=== PATIENT | female | born 1960 | race Caucasian/White ===

== ENCOUNTER 2023-02-03 11:51 | Emergency (ER) | payer OTHER ==
[~2023-02-03] VITALS: Ht 154.9 cm; Wt 66.7 kg
[2023-02-03] VITALS (16 sets, daily range): BP systolic 143–180; BP diastolic 86–105
[2023-02-03 12:58] LABS: BASO% 0.4 % (0-3); EOS% 0.7 % (0-8); HEMATOCRIT 43.1 % (37.0-47.0); HEMOGLOBIN 14.2 g/dl (12.0-16.0); IMMATURE GRANULOCYTES 0.3 % (0.0-5.0); LYMPH% 31.7 % (15-41); MEAN CELL VOLUME 91.1 fL CALC (80.0-100.0); MEAN CORPUSCULAR HGB CONC 32.9 g/dL CAL (32.0-36.0); MONO% 6.1 % (2-13); NEUT# 4.63 thou/uL (2.00-7.15); NEUT% 60.8 % (42-76); RED BLOOD COUNT 4.73 mill/uL (4.20-5.60); RED CELL DISTRI WIDTH 13.1 % (11.5-15.5)
[2023-02-03 13:20] LABS: ALBUMIN 4.3 g/dL (3.2-5.0); ALKALINE PHOSPHATASE 80 u/l (38-126); ANION GAP 12 (6-22 (CALC)); BILIRUBIN, TOTAL 0.8 mg/dL (0.02-1.3); BUN 12 mg/dL (8-23); BUN/CREATININE RATIO 17 (12-20 (CALC)); CARBON DIOXIDE 25 mmol/l (22-30); CHLORIDE 105 mmol/l (95-108); CREATININE 0.7 mg/dL (0.5-1.0); GFR FOR AFR.AMER. > 60 ML/MIN (>=60 (CALC)); GFR OTHER RACES > 60 ML/MIN (>=60 (CALC)); POTASSIUM 4.6 mmol/l (3.5-5.1); SGOT/AST 25 u/l (9-36); SODIUM 137 mmol/l (137-146); TOTAL PROTEIN 7.3 g/dL (6.3-8.2)
[2023-02-03 13:51] LABS: TSH, 3RD GENERATION 3.16 uIU/mL (0.47 - 4.68)
== END 2023-02-03 16:31 | disposition home or self-care (01) ==
LOC: EDBD 11:51 → ED 11:51
PROVIDERS: Family Medicine
DX: Z45.02 Encounter for adjustment and management of automatic implantable cardiac defibrillator (principal); I42.9 Cardiomyopathy, unspecified; I25.10 Atherosclerotic heart disease of native coronary artery without angina pectoris; I10 Essential (primary) hypertension; E11.9 Type 2 diabetes mellitus without complications; Z95.810 Presence of automatic (implantable) cardiac defibrillator; Z95.5 Presence of coronary angioplasty implant and graft; Z91.199 Patient's noncompliance with other medical treatment and regimen due to unspecified reason

== ENCOUNTER 2023-06-08 13:52 | Emergency (ER) | payer OTHER ==
[~2023-06-08] VITALS: Ht 154.9 cm; Wt 45.0 kg
[2023-06-08 13:59] VITALS: BP 171/103
[2023-06-08 14:00] VITALS: BP 179/97
[2023-06-08 14:15] VITALS: BP 165/101
[2023-06-08] MEDS ORDERED: LOSARTAN POTASS25 MG PO (14:19)
[2023-06-08] MEDS ORDERED: CARVEDILOL6.25 MG PO (14:20)
[2023-06-08] MEDS ORDERED: FLOVENT HF110 MCG/AC (14:21)
[2023-06-08] MEDS ORDERED: SIMVASTATIN20 M1 (14:21)
[2023-06-08] MEDS ORDERED: ELIQUIS5 MG PO (14:21)
[2023-06-08] MEDS ORDERED: VENTOLIN HFA108 MCG (14:22)
[2023-06-08] MEDS ORDERED: PROVENTIL HFA108 MCG (14:22)
[2023-06-08 14:30] VITALS: BP 167/108
[2023-06-08] MEDS ORDERED: TRAMADOL HYDROC50 M1 PO (15:18)
[2023-06-08 15:25] VITALS: BP 167/108
== END 2023-06-08 15:28 | disposition home or self-care (01) ==
LOC: ED 13:52
DX: M79.671 Pain in right foot (principal); I10 Essential (primary) hypertension; E11.9 Type 2 diabetes mellitus without complications; I25.10 Atherosclerotic heart disease of native coronary artery without angina pectoris; F17.210 Nicotine dependence, cigarettes, uncomplicated; E78.00 Pure hypercholesterolemia, unspecified; Z95.810 Presence of automatic (implantable) cardiac defibrillator; Z95.5 Presence of coronary angioplasty implant and graft